=== PATIENT | female | born 1960 | race Caucasian/White ===

== ENCOUNTER 2020-08-13 21:18 | Emergency (ER) | payer SELFPAY ==
--- NOTE | 2020-08-13 21:50 | NUR ---
Called to be traiged but was not present.
--- NOTE | 2020-08-13 22:00 | NUR ---
Patient left without being triaged or seen by ERMD.
== END 2020-08-13 22:58 | disposition left against medical advice (07) ==
LOC: ER 21:20
DX: Z53.21 Procedure and treatment not carried out due to patient leaving prior to being seen by health care provider (principal)